=== PATIENT | male | born 1955 | race Caucasian/White ===

== ENCOUNTER → 2020-04-02 15:52 | Outpatient (BNVA) | payer OTHER, SELFPAY | PROVIDERS: PCP Internal Medicine; Referring Provider Internal Medicine; Visit Provider Urology | DX: Z76.89 Persons encountering health services in other specified circumstances (principal) ==

== ENCOUNTER → 2021-04-15 13:07 | Outpatient (BNVA) | payer OTHER, SELFPAY | PROVIDERS: PCP Internal Medicine; Visit Provider Urology | DX: N40.1 Benign prostatic hyperplasia with lower urinary tract symptoms (principal); N32.81 Overactive bladder; N52.01 Erectile dysfunction due to arterial insufficiency; N13.8 Other obstructive and reflux uropathy; R39.12 Poor urinary stream | CPT/HCPCS: 51798; 99212 ==

== ENCOUNTER → 2021-06-10 08:14 | Outpatient (BNVA) | payer OTHER, SELFPAY | PROVIDERS: PCP Internal Medicine; Visit Provider Urology ==

== ENCOUNTER → 2021-07-22 08:48 | Outpatient (BNVA) | payer OTHER, SELFPAY | PROVIDERS: PCP Internal Medicine; Visit Provider Urology | DX: N40.1 Benign prostatic hyperplasia with lower urinary tract symptoms (principal); N13.8 Other obstructive and reflux uropathy; R39.15 Urgency of urination; R35.1 Nocturia; N32.81 Overactive bladder; N52.9 Male erectile dysfunction, unspecified; Z79.899 Other long term (current) drug therapy | CPT/HCPCS: 52000; 99212 ==

== ENCOUNTER → 2021-09-24 10:42 | Outpatient (BNVA) | payer OTHER, SELFPAY | PROVIDERS: PCP Internal Medicine; Visit Provider Urology | DX: Z13.89 Encounter for screening for other disorder (principal) ==

== ENCOUNTER → 2022-03-26 13:46 | Outpatient (BNVA) | payer MEDICARE, OTHER, SELFPAY | PROVIDERS: PCP Internal Medicine; Visit Provider Urology | DX: N40.1 Benign prostatic hyperplasia with lower urinary tract symptoms (principal); N13.8 Other obstructive and reflux uropathy; N32.81 Overactive bladder; R39.12 Poor urinary stream; N52.01 Erectile dysfunction due to arterial insufficiency; Z79.899 Other long term (current) drug therapy | CPT/HCPCS: 51798; 99212 ==

== ENCOUNTER 2023-06-24 11:31 | Outpatient (AMB) | payer MEDICARE, OTHER, SELFPAY ==
--- NOTE | 2023-06-24 11:33 | HO.NEPHOV ---
HPI HPI Comments History of Present Illness Details I would the pleasure of seeing Heriberto in follow-up of his very mild CKD and longstanding hypertension. He had been abstaining from alcohol since his last hospital admission, which was quite a few years ago. He has history of gout and had taken allopurinol in the past which had caused him itching and it was discontinued. He is on probenecid and take colchicine as needed. His blood pressure has been at goal. He claims to have a stable weight. He does not have any chest pain, shortness of breath, paroxysmal nocturnal dyspnea, orthopnea, pedal edema, orthostasis or urinary symptoms. He is good with his diet and compliant with medications. [facility] Medical History (Updated 06/24/23 @ 15:02 by Eduardo Gilbert MD) Hypertension CKD (chronic kidney disease) stage 1, GFR 90 ml/min or greater Surgical History History of appendectomy History of hip replacement Social History Alcohol intake: former Patient Tobacco Use Status: Never used Tobacco Vital Signs 06/24/23 11:35 Height 6 ft Weight 252 lb BMI 34.2 BP 120/70 Blood Pressure Location Lt brachial Position Sitting Pulse 74 Pulse Source Pulse Oximeter Pulse Oximetry (%) 94 Oxygen Delivery Method Room Air Physical Exam Vital Signs: Last Vital Signs Pulse 74 06/24/23 11:35 BP 120/70 06/24/23 11:35 Pulse Ox 94 06/24/23 11:35 Oxygen Delivery Method Room Air 06/24/23 11:35 BMI result Body Mass Index 34.2 Const General: comfortable and no acute distress Orientation/consciousness: patient oriented x3 HEENT Head: Yes normocephalic Mouth: Normal oral and palatal mucosa present Eyes EOM: EOMs intact bilaterally Neck Neck: Yes supple Resp Auscultation: clear to auscultation bilaterally Cardio Jugular venous distension: no JVD Rate: regular rate GI Palpation (GI): Soft to palpation Auscultation: normal bowel sounds General: Yes no CVA tenderness Back/Spine/Pelvis Back: no CVA tenderness Skin General skin exam: no rashes or lesions noted Neuro General: patient oriented x3 and moves all extremities Extrem General: Yes no pedal edema Assessment & Plan Assessment & Plan (1) CKD (chronic kidney disease) stage 1, GFR 90 ml/min or greater: Code(s): N18.1 - Chronic kidney disease, stage 1 (2) Hypertension: Code(s): I10 - Essential (primary) hypertension Plan Heriberto had PARISA in the past secondary to ATN from pancreatitis. He did not need any renal replacement at that time. His renal function improved to baseline and has been stable. He has prostatic symptoms and is closely followed up by urologist. He has not on any ROSALVA inhibitor, ARB or nonsteroidal anti-inflammatories. He will benefit from some more weight loss. His blood pressure is at goal. He maintains good hydration. He has history of gout and it is under good control with the probenecid. He did not tolerate allopurinol. I did not make any medication changes today. All his questions answered. Follow-up appointment given in the ER. Orders: Orders Blood Urea Nitrogen Today N18.1 - Chronic kidney disease, stage 1 Creatinine Today N18.1 - Chronic kidney disease, stage 1 Calcium Today N18.1 - Chronic kidney disease, stage 1 Protein Creatinine Ratio, Ur Today N18.1 - Chronic kidney disease, stage 1 Electrolytes Today N18.1 - Chronic kidney disease, stage 1 Coding Level of Care Code Est Pt Level 3 (14851) Diagnoses CKD (chronic kidney disease) stage 1, GFR 90 ml/min or greater N18.1 Hypertension I10 Results Reviewed Nephrology Results: No Data to Display
[2023-06-24 11:35] VITALS: BP 120/70; PULSE 74; O2SAT 94; BMI 34.2
== END 2023-06-24 12:18 | disposition home or self-care (01) ==
PROVIDERS: PCP Internal Medicine; Visit Provider Internal Medicine Nephrology
DX: I12.9 Hypertensive chronic kidney disease with stage 1 through stage 4 chronic kidney disease, or unspecified chronic kidney disease (principal); N18.1 Chronic kidney disease, stage 1
CPT/HCPCS: 99213

== ENCOUNTER → 2023-06-24 11:31 | Outpatient (BNVA) | payer MEDICARE, OTHER, SELFPAY | PROVIDERS: PCP Internal Medicine; Visit Provider Internal Medicine Nephrology | DX: I12.9 Hypertensive chronic kidney disease with stage 1 through stage 4 chronic kidney disease, or unspecified chronic kidney disease (principal); N18.1 Chronic kidney disease, stage 1 | CPT/HCPCS: 99212 ==

== ENCOUNTER 2023-07-20 11:13 | Outpatient (AMB) | payer MEDICARE, OTHER, SELFPAY ==
--- NOTE | 2023-07-20 11:25 | A.OFFVIS_ITS ---
Intake Intake Visit Reasons: 1Y PSA(set)vm to confirm Intake Note: Patient presents today for a follow-up on PSA Meds- Sildenafil, Terazosin, Tolterodine ER Allergies to Antibiotic- No Known Allergies Blood Thinner- None Post Void Residual: 51ml Mop Man Required: No Accompanied by: Self / Same As Patient Allergies guaifenesin [From MUCINEX] Allergy (Intermediate, Verified 07/20/23 11:27) RAPID HEART hydromorphone [From DILAUDID] Adverse Reaction (Intermediate, Verified 07/20/23 11:27) HEADACHES HPI HPI Comments History of Present Illness Details Carlos is a pleasant male. He is a patient of Dr. Chen. He seen for the following urologic conditions - erectile dysfunction - BPH - urinary urgency and frequency Yearly follow-up for lower urinary tract symptoms and erectile dysfunction Refill provided for tolterodine and terazosin Continued reasonable response - effective for control Continues with 100 mg sildenafil as needed for erections States coffee only 1 per day Current PVR 50 cc, prior PVR 65 Lower Urinary Tract Symptoms: Current visit is for further evaluation of, lower urinary tract symptoms, predominate imitative symptoms - urge 7-8 times per day. 2 times at night - stream ok - does empty Current treatment includes medication terazosin 5 mg, tolterodine 4 mg - prior medications include tamsulosin, oxybutynin, Prostate Symptom Score 3/20 , Moderate (9-19), Bother 3. Symptoms include 3/20 , incomplete emptying, urgency, weak stream, nocturia (>2), and are progressing. Results from testing include renal/bladder us Yes date 08/13/2019 PVR 12 prostate size 22 Prior Prostate Score mild Prostate volume 30-50gm. Associated conditions CAD No CVA No diabetes No elevated PSA No erectile dysfunction No hematuria No renal insufficiency No urge incontinence No urinary retention No urinary tract infection No psychiatric diagnosis No Erectile dysfunction: He presents today for for continued evaluation and management of erectile dysfunction Declining effective sildenafil 100 mg. Increase to 150mg Symptoms have been present for/since Ongoing. Current treatment includes none. Prior therapies include oral medications. At this time he experiences erections are partial and adequate for vaginal penetration, that undergo rapid detumesence after penetration, RAHEEM 8-11 Moderate ED. Currently they are in a stable relationship. Associated problems hypertension No diabetes No dyslipidemia No depression No stress No decreased libido No pelvic surgery No Overall he is is not satisfied with the current management. Therapeutic plan includes increasing dose of oral medication PFSH Medical History Hypertension CKD (chronic kidney disease) stage 1, GFR 90 ml/min or greater Surgical History History of appendectomy History of hip replacement Social History Alcohol intake: former Patient Tobacco Use Status: Never used Tobacco Review of Systems Const Denies chills and Denies fever(s) Card Reports no additional complaints and Denies syncope Resp Denies cough GI Denies abdominal pain and Denies heartburn Reports as per HPI and Denies change in libido Neuro Denies syncope Psych Denies change in libido Endo Denies change in libido Physical Exam Const General: cooperative, healthy appearing, comfortable and no acute distress Orientation/consciousness: patient oriented x3 HEENT Face and sinus: Yes normal facial exam Mouth: moist mucous membranes Neck Neck: Yes normal visual inspection, Yes full ROM and Yes trachea midline Chest Chest palpation & inspection: normal inspection of the chest Resp Effort & Inspection: normal respiratory effort, able to speak in complete sentences and no respiratory distress GI Inspection: Yes normal to inspection Back/Spine/Pelvis Cervical Spine: normal cervical lordosis Thoracic/Lumbar Spine: thoracic and lumbar spine normal to inspection Skin General skin exam: no rashes or lesions noted Neuro General: patient oriented x3, gait normal, tone normal and moves all extremities Extrem General: Yes normal to inspection and Yes capillary refill normal Office Procedures Post Void Residual Post Residual Void Post Void Residual (PVR): 51 [id number] Void Residual by ultrasound Assessment & Plan Assessment & Plan (1) Overactive bladder: Code(s): N32.81 - Overactive bladder (2) Erectile dysfunction due to arterial insufficiency: Code(s): N52.01 - Erectile dysfunction due to arterial insufficiency (3) Nocturia associated with benign prostatic hyperplasia: Code(s): N40.1 - Benign prostatic hyperplasia with lower urinary tract symptoms; R35.1 - Nocturia (4) Weak urinary stream: Code(s): R39.12 - Poor urinary stream Plan Twelve month follow-up Orders: Orders AMB Post Void Residual by ultrasound Today R33.9 - Retention of urine, unspec ified Medications: Refilled tolterodine ER 4 mg PO DAILY 90 days 90 caps 3RF N32.81 - Overactive bladder, N40.0 - Benign prostatic hyperplasia without lower urinary tract symptoms sildenafil administer 60 minutes before intended activity 100 mg PO DAILY 30 days PRN 30 tabs 1RF sexual activity N52.01 - Erectile dysfunction due to arterial insufficiency, N52.9 - Male erectile dysfunction, unspecified terazosin 5 mg PO BEDTIME 90 days 90 caps 3RF N13.8 - Other obstructive and reflux uropathy, N40.1 - Benign prostatic hyperplasia with lower urinary tract symptoms, R35.0 - Frequency of micturition Patient Instructions: Imaging studies, laboratory and physical exam results were discussed and reviewed in detail. No major barriers to patient understanding were identified. An opportunity to ask questions regarding the treatment plan was provided. All questions were answered. The patient expressed understanding and agreement with the above treatment plan. The patient is aware they should contact our office by phone for worsening of their current condition or the appearance of new urologic symptoms. Compliance is encouraged with any medications and followup testing that is ordered. It is a privilege to participate in the urologic care of your patient. If you have any questions or concerns regarding treatment for the above conditions, or other urologic issues, please do not hesitate to contact me. The office telephone contact is [phone]. This note is constructed using voice recognition software. While every effort has been made to ensure accuracy histology technologist errors may have been included. Yours sincerely, Dr Demond Weiss MD, [facility] - Urology Providers of Expert, Compassionate Care for the Genitourinary System Coding Level of Care Code Est Pt Level 4 (46180) Diagnoses Overactive bladder N32.81 Erectile dysfunction due to arterial insufficiency N52.01 Nocturia associated with benign prostatic hyperplasia N40.1; R35.1 Weak urinary stream R39.12 CPT Codes Post Residual Void - PVR CPT Code: 26205-[id number] Void Residual by ultrasound ([id number])
== END 2023-07-20 11:46 | disposition home or self-care (01) ==
PROVIDERS: PCP Internal Medicine; Visit Provider Urology
DX: N32.81 Overactive bladder (principal); N52.01 Erectile dysfunction due to arterial insufficiency; N40.1 Benign prostatic hyperplasia with lower urinary tract symptoms; R35.1 Nocturia; R39.12 Poor urinary stream
CPT/HCPCS: 99213

== ENCOUNTER → 2023-07-20 11:13 | Outpatient (BNVA) | payer MEDICARE, OTHER, SELFPAY | PROVIDERS: PCP Internal Medicine; Visit Provider Urology | DX: N52.01 Erectile dysfunction due to arterial insufficiency (principal); N32.81 Overactive bladder; N40.1 Benign prostatic hyperplasia with lower urinary tract symptoms; R35.1 Nocturia; R39.12 Poor urinary stream | CPT/HCPCS: 51798; 99212 ==

== ENCOUNTER 2024-06-22 09:26 | Outpatient (AMB) | payer MEDICARE, OTHER, SELFPAY ==
--- NOTE | 2024-06-22 09:34 | HO.NEPHOV ---
Vital Signs 06/22/24 09:37 Height 6 ft Weight 253 lb BMI 34.3 BP 118/60 Blood Pressure Location Lt brachial Position Sitting Pulse 82 Pulse Source Pulse Oximeter Pulse Oximetry (%) 97 Oxygen Delivery Method Room Air Intake Visit Reasons: 1 yr follow up-[facility] Diagnostic Sales Specialist Required: No Accompanied by: Self / Same As Patient Allergies guaifenesin [From MUCINEX] Allergy (Intermediate, Verified 06/22/24 09:36) RAPID HEART hydromorphone [From DILAUDID] Adverse Reaction (Intermediate, Verified 06/22/24 09:36) HEADACHES HPI Comments Details: Heriberto was seen in follow-up of his very mild CKD and longstanding hypertension. He recently had pneumonia . He had been abstaining from alcohol since his last hospital admission, which was quite a few years ago. He has history of gout and had taken allopurinol in the past which had caused him itching and it was discontinued. He is on probenecid and take colchicine as needed. His blood pressure has been at goal. He claims to have a stable weight. He does not have any chest pain, shortness of breath, paroxysmal nocturnal dyspnea, orthopnea, pedal edema, orthostasis or urinary symptoms. He is good with his diet and compliant with medications [facility] Medical History Hypertension CKD (chronic kidney disease) stage 1, GFR 90 ml/min or greater Surgical History History of appendectomy History of hip replacement Social History Alcohol intake: former Patient Tobacco Use Status: Never used Tobacco Review of Systems Const All systems reviewed & are unremarkable except as noted in HPI and below Physical Exam Vital Signs: Last Vital Signs Pulse 82 06/22/24 09:37 BP 118/60 06/22/24 09:37 Pulse Ox 97 06/22/24 09:37 Oxygen Delivery Method Room Air 06/22/24 09:37 BMI result Body Mass Index 34.3 Const General: comfortable and no acute distress Orientation/consciousness: patient oriented x3 HEENT Head: Yes normocephalic Mouth: Normal oral and palatal mucosa present Eyes EOM: EOMs intact bilaterally Neck Neck: Yes supple Resp Auscultation: clear to auscultation bilaterally Cardio Jugular venous distension: no JVD Rate: regular rate GI Palpation (GI): Soft to palpation Auscultation: normal bowel sounds General: Yes no CVA tenderness Back/Spine/Pelvis Back: no CVA tenderness Skin General skin exam: no rashes or lesions noted Neuro General: patient oriented x3 and moves all extremities Extrem General: Yes no pedal edema Results Reviewed Nephrology Results: No Data to Display Assessment & Plan Assessment & Plan (1) Hypertension: Code(s): I10 - Essential (primary) hypertension Category: Medical Qualifiers: Hypertension type: primary hypertension Qualified Code(s): I10 - Essential (primary) hypertension (2) CKD (chronic kidney disease) stage 1, GFR 90 ml/min or greater: Code(s): N18.1 - Chronic kidney disease, stage 1 Category: Medical Plan Heriberto had H/O PARISA in the past secondary to ATN from pancreatitis. He did not need any renal replacement at that time. His renal function improved to baseline and has been stable. He has prostatic symptoms and is closely followed up by urologist. He has not on any ROSALVA inhibitor, ARB or nonsteroidal anti-inflammatories. He will benefit from some more weight loss. His blood pressure is at goal. He maintains good hydration. He has history of gout and it is under good control with the probenecid. He did not tolerate allopurinol. I did not make any medication changes today. All his questions answered Orders: Orders Protein Creatinine Ratio, Ur 1 Year I10 - Essential (primary) hypertension, N18.1 - Chronic kidney disease, stage 1 Blood Urea Nitrogen 1 Year I10 - Essential (primary) hypertension, N18.1 - Chronic kidney disease, stage 1 Creatinine 1 Year I10 - Essential (primary) hypertension, N18.1 - Chronic kidney disease, stage 1 Electrolytes 1 Year I10 - Essential (primary) hypertension, N18.1 - Chronic kidney disease, stage 1 Coding Level of Care Code Est Pt Level 4 (33113) Diagnoses Primary hypertension I10 Hypertension type: primary hypertension CKD (chronic kidney disease) stage 1, GFR 90 ml/min or greater N18.1
[2024-06-22 09:37] VITALS: BP 118/60; PULSE 82; O2SAT 97; BMI 34.3
--- OUTSIDE RECORDS SUMMARY | 2024-06-22 09:55 | XMS_ITS | Clinical Summary ---
Author Organization [facility] Address [address] [place] [address] Phone Care Team Providers Care Plaster Mold Maker Name Role Phone No, Pcp Primary Care Provider [phone] Allergies Active Allergy Reactions Criticality Noted Date Comments Hydromorphone Other (see comments) 06/24/2021 Pseudoephedrine-Guaifenesin Other (see comments) 06/24/2021 Medications Cholecalciferol 10 MCG (400 UNIT) capsule Take 1 capsule by mouth 1 (one) time each day Active colchicine 0.6 MG tablet Take 1 tablet by mouth Active cyanocobalamin 500 MCG tablet Take 1 tablet by mouth 1 (one) time each day Active metoprolol succinate XL (TOPROL-XL) 200 MG 24 hr tablet Take 1 tablet by mouth 1 (one) time each day Active terazosin (HYTRIN) 5 MG capsule Take 1 capsule by mouth 1 (one) time each day 06/10/2021 Active tolterodine LA (DETROL LA) 4 MG 24 hr capsule Take 4 mg by mouth 1 (one) time each day Do not crush, chew, or split. Active allopurinol (ZYLOPRIM) 100 MG tablet Take 100 mg by mouth 1 (one) time each day Active Active Problems Problem Noted Date Diagnosed Date Acute nontraumatic kidney injury 06/24/2021 Anemia 06/24/2021 Chronic kidney disease stage 3 06/24/2021 Hypertension 06/24/2021 History of pancreatitis 07/05/2017 Essential hypertension 11/11/2009 Resolved Problems Problem Noted Date Diagnosed Date Resolved Date Gout 06/24/2021 06/24/2021 Pancreatitis 06/24/2021 06/24/2021 Rosacea 06/24/2021 06/24/2021 Benign prostatic hyperplasia with outflow obstruction 06/28/2007 06/24/2021 Obesity 06/28/2007 06/24/2021 Immunizations Name Administration Dates Next Due DT 06/29/2000 Influenza Whole 03/30/2019,01/29/2016 Moderna SARS-COV-2 08/30/2020,07/31/2020 Pneumococcal Polysaccharide 07/06/2017 Tdap 02/04/2014,08/11/2010 Family History Medical History Relation Comments Diabetes Mother type 2 Hypertension Mother Relation Status Comments Mother Social History Tobacco Use Types Packs/Day Years Used Date Smoking Tobacco: Never Smokeless Tobacco: Never Tobacco Cessation:Counseling Given: Not Answered Sex and Gender Information Value Date Recorded Sex Assigned at Not on file Legal Sex Male 4:51 PM EST Gender Identity Not on file Sexual Orientation Not on file Last Filed Vital Signs Vital Sign Reading Time Taken Comments Blood Pressure 128/70 06/30/2022 2:20 PM EST Pulse 78 06/30/2022 2:20 PM EST Temperature - - Respiratory Rate - - Oxygen Saturation 99% 06/24/2021 1:21 PM EST Inhaled Oxygen Concentration - - Weight 117 kg (257 lb 3.2 oz) 06/30/2022 2:20 PM EST Height 182.9 cm (6') 06/18/2020 12:00 PM EST Body Mass Index 34.88 06/18/2020 12:00 PM EST Plan of Treatment Health Maintenance Due Date Last Done Comments Colorectal Cancer Screening: Annual FOBT 2005 Colorectal Cancer Screening: Colonoscopy 2005 Colorectal Cancer Screening: Sigmoidoscopy 2005 Pneumococcal Vaccine: 65+ Years (2 of 2 - PCV) 07/06/2018 07/06/2017 Influenza Vaccine (#1) 2024 9, 01/29/2016 Hepatitis B Vaccine Aged Out No longe r eligible based on patient's age to complete this topic Insurance MEDICARE [facility] [employer]ICARE [employer] Care Teams Plaster Mold Maker Relationship Specialty Start Date End Date No, Pcp PCP - General 06/30/22
== END 2024-06-22 09:57 | disposition home or self-care (01) ==
PROVIDERS: PCP Physician Assistant Medical; Visit Provider Internal Medicine Nephrology
DX: I12.9 Hypertensive chronic kidney disease with stage 1 through stage 4 chronic kidney disease, or unspecified chronic kidney disease (principal); N18.1 Chronic kidney disease, stage 1
CPT/HCPCS: 99214

== ENCOUNTER → 2024-06-22 09:26 | Outpatient (BNVA) | payer MEDICARE, OTHER, SELFPAY | PROVIDERS: PCP Physician Assistant Medical; Visit Provider Internal Medicine Nephrology | DX: I12.9 Hypertensive chronic kidney disease with stage 1 through stage 4 chronic kidney disease, or unspecified chronic kidney disease (principal); N18.1 Chronic kidney disease, stage 1 | CPT/HCPCS: 99212 ==

== ENCOUNTER 2024-07-19 09:40 | Outpatient (AMB) | payer MEDICARE, OTHER, SELFPAY ==
--- NOTE | 2024-07-19 09:49 | A.OFFVIS_ITS ---
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 He is a patient of Dr. Chen. He seen for the following urologic conditions - erectile dysfunction - BPH - urinary urgency and frequency Yearly follow-up for lower urinary tract symptoms and erectile dysfunction Refill provided for tolterodine and terazosin Continued reasonable response - effective for control Continues with 100 mg sildenafil as needed for erections States coffee only 1 per day Current PVR 50 cc, prior PVR 65 Lower Urinary Tract Symptoms: Current visit is for further evaluation of, lower urinary tract symptoms, predominate imitative symptoms - urge 7-8 times per day. 2 times at night - stream ok - does empty Current treatment includes medication terazosin 5 mg, tolterodine 4 mg - prior medications include tamsulosin, oxybutynin, Prostate Symptom Score 3/20 , Moderate (9-19), Bother 3. Symptoms include 3/20 , incomplete emptying, urgency, weak stream, nocturia (>2), and are progressing. Results from testing include renal/bladder us Yes date 08/13/2019 PVR 12 prostate size 22 Prior Prostate Score mild Prostate volume 30-50gm. Associated conditions CAD No CVA No diabetes No elevated PSA No erectile dysfunction No hematuria No renal insufficiency No urge incontinence No urinary retention No urinary tract infection No psychiatric diagnosis No Erectile dysfunction: He presents today for for continued evaluation and management of erectile dysfunction Declining effective sildenafil 100 mg. Increase to 150mg Symptoms have been present for/since Ongoing. Current treatment includes none. Prior therapies include oral medications. At this time he experiences erections are partial and adequate for vaginal penetration, that undergo rapid detumesence after penetration, RAHEEM 8-11 Moderate ED. Currently they are in a stable relationship. Associated problems hypertension No diabetes No dyslipidemia No depression No stress No decreased libido No pelvic surgery No Overall he is is not satisfied with the current management. Therapeutic plan includes increasing dose of oral medication PFSH Medical History Hypertension CKD (chronic kidney disease) stage 1, GFR 90 ml/min or greater Surgical History History of appendectomy History of hip replacement Social History Alcohol intake: former Patient Tobacco Use Status: Never used Tobacco Review of Systems Const Denies chills and Denies fever(s) Card Reports no additional complaints and Denies syncope Resp Denies cough GI Denies abdominal pain and Denies heartburn Reports as per HPI and Denies change in libido Neuro Denies syncope Psych Denies change in libido Endo Denies change in libido Physical Exam Const General: cooperative, healthy appearing, comfortable and no acute distress Orientation/consciousness: patient oriented x3 HEENT Face and sinus: Yes normal facial exam Mouth: moist mucous membranes Neck Neck: Yes normal visual inspection, Yes full ROM and Yes trachea midline Chest Chest palpation & inspection: normal inspection of the chest Resp Effort & Inspection: normal respiratory effort, able to speak in complete sentences and no respiratory distress GI Inspection: Yes normal to inspection Back/Spine/Pelvis Cervical Spine: normal cervical lordosis Thoracic/Lumbar Spine: thoracic and lumbar spine normal to inspection Skin General skin exam: no rashes or lesions noted Neuro General: patient oriented x3, gait normal, tone normal and moves all extremities Extrem General: Yes normal to inspection and Yes capillary refill normal Office Procedures Post Void Residual Post Residual Void Post Void Residual (PVR): 36 [id number] Void Residual by ultrasound Results AMB Urinalysis, Automated UA Leukoctes 0 Viviana/uL Last Edit by NIGEL Dunham on 07/19/24 09:57 UA Nitrite Negative Last Edit by NIGEL Dunham on 07/19/24 09:57 UA Urobilinogen 3.5 mg/dL Last Edit by NIGEL Dunham on 07/19/24 09:5 7 UA Protein 15 mg/dL Last Edit by NIGEL Dunham on 07/19/24 09:57 UA pH 5.5 Last Edit by NIGEL Dunham on 07/19/24 09:57 UA Blood 0 Andrey/uL Last Edit by NIGEL Dunham on 07/19/24 09:57 UA Specific Eland 1.020 Last Edit by NIGEL Dunham on 07/19/24 09: 57 UA Ketone Negative Last Edit by NIGEL Dunham on 07/19/24 09:57 UA Bilirubin 0 mg/dL Last Edit by NIGEL Dunham on 07/19/24 09:57 UA Glucose 0 mg/dL Last Edit by NIGEL Dunham on 07/19/24 09:57 Results Reviewed Results Reviewed: Laboratory Last Values Urine pH (Auto) 5.5 07/19/24 09:57 Specific Eland (Auto) 1.020 07/19/24 09:57 Urine Protein (Auto) 15 mg/dL 07/19/24 09:57 Glucose (UA)(Auto) 0 mg/dL 07/19/24 09:57 Urine Ketones (Auto) Negative 07/19/24 09:57 Urine Blood (Auto) 0 Andrey/uL 07/19/24 09:57 Urine Nitrite (Auto) Negative 07/19/24 09:57 Urine Bilirubin (Auto) 0 mg/dL 07/19/24 09:57 Urine Urobilinogen (Auto) 3.5 mg/dL 07/19/24 09:57 Leukocyte Esterase (Auto) 0 Viviana/uL 07/19/24 09:57 Assessment & Plan Assessment & Plan (1) BPH w urinary obs/LUTS: Code(s): N40.1 - Benign prostatic hyperplasia with lower urinary tract symptoms; N13.8 - Other obstructive and reflux uropathy Category: Medical (2) Weak urinary stream: Code(s): R39.12 - Poor urinary stream Category: Medical (3) Erectile dysfunction due to arterial insufficiency: Code(s): N52.01 - Erectile dysfunction due to arterial insufficiency Category: Medical (4) Overactive bladder: Code(s): N32.81 - Overactive bladder Category: Medical Plan Medication refill Twelve month follow-up Orders: Orders AMB Urinalysis Automated Today Z13.9 - Encounter for screening, unspecified Medications: New sildenafil administer 60 minutes before intended activity 100 mg PO ONCE PRN 30 tabs 1RF sexual activity 30 days N52.01 - Erectile dysfunction due to arterial insufficiency Refilled terazosin 5 mg PO BEDTIME 90 caps 3RF 90 days N13.8 - Other obstructive and reflux uropathy, N40.1 - Benign prostatic hyperplasia with lower urinary tract symptoms, R35.0 - Frequency of micturition tolterodine ER 4 mg PO DAILY 90 caps 3RF 90 days N32.81 - Overactive bladder, N40.0 - Benign prostatic hyperplasia without lower urinary tract symptoms Patient Instructions: This note is constructed using voice recognition software. While every effort has been made to ensure accuracy cancellation clerk errors may have been included. Imaging studies, laboratory and physical exam results were discussed and re viewed in detail. No major barriers to patient understanding were identified. An opportunity to ask questions regarding the treatment plan was provided. All questions were answered. The patient expressed understanding and agreement with the above treatment plan. The patient is aware they should contact our office by phone for worsening of their current condition or the appearance of new urologic symptoms. Compliance is encouraged with any medications and followup testing that is ordered. It is a privilege to participate in the urologic care of your patient. If you have any questions or concerns regarding treatment for the above conditions, or other urologic issues, please do not hesitate to contact me. The office telephone contact is [phone]. Sincerely, Dr Demond Weiss MD, [facility]ionate Specialist Care for the Genitourinary System Coding Level of Care Code Est Pt Level 4 (05967) Diagnoses BPH w urinary obs/LUTS N40.1; N13.8 Weak urinary stream R39.12 Erectile dysfunction due to arterial insufficiency N52.01 Overactive bladder N32.81 CPT Codes Post Residual Void - PVR CPT Code: 05790-Srit Void Residual by ultrasound ([id number])
--- OUTSIDE RECORDS SUMMARY | 2024-07-19 11:00 | XMS_ITS | Continuity of Care Document ---
Author Organization [facility] Adult Address [address] [place] [address]- Care Team Providers Care Supervisor [employer]ing [employer] Name Role Phone Fela Chun Primary Care Matthew nicholson [id number] Date([facility]24 - 07/01/[address] [address]- Encounter Type: Triage Allergies, Adverse Reactions, Alerts Substance Criticality Severity Reaction Reaction Severity Status Dilaudid Active Mucinex D Racing heart beat Ac tive Immunizations Given and Recorded Vaccine Date Status Refusal Reason influenza virus vaccine, inactivated 04/17/24 Ramesh rded influenza virus vaccine, inactivated 04/13/23 Ramesh rded influenza virus vaccine, inactivated 04/14/22 Ramesh rded influenza virus vaccine, inactivated 02/26/21 Ramesh rded influenza virus vaccine, inactivated 02/13/20 Ramesh rded influenza virus vaccine, inactivated 1 05/25/18 Re corded influenza virus vaccine, inactivated 2 05/28/17 Re corded influenza virus vaccine, inactivated 3 01/23/14 Gi canelo influenza virus vaccine, inactivated 02/01/11 Give n SARS-CoV-2(COVID-19)mRNA-LNP vac([id number]) 02/29/24 Recorded SARS-CoV-2(COVID-19)mRNA-LNP vac([id number]) 04/13/23 Recorded [id number] bivalent booster vax 03/23/22 Recorded SARS-CoV-2 (COVID-19) mRNA-1273 vaccine 10/06/21 R ecorded SARS-CoV-2 (COVID-19) mRNA-1273 vaccine 03/12/21 R ecorded SARS-CoV-2 (COVID-19) mRNA-1273 vaccine 08/30/20 R ecorded SARS-CoV-2 (COVID-19) mRNA-1273 vaccine 07/31/20 R ecorded Influenza Virus Vaccine (oldterm) 03/30/19 Recorde d pneumococcal 23-valent vaccine 07/06/17 Given Fluarix (oldterm) 4 01/29/16 Given tetanus/diphtheria/pertussis, acel(Tdap) 02/04/14 Given tetanus/diphtheria/pertussis, acel(Tdap) 08/11/10 Given Diphth-Tetanus Toxoids Adsorbed(oldterm) 5 06/29/00 Given [facility] 2Location History[facility] 3Admin Note: [facility] 4Admin Note: [facility] 5Admin Note: historial data Medications colchicine 0.6 mg oral capsule See Instructions, 2 capsules PRN, 0 Refills, Maintenance, 07/11/21 10:46:00 AM EST, Partial fill upon patient request if the prescription is for a schedule II opioid drug. Start Date: 07/11/21 Status: Ordered Repeat number: 1 Metoprolol Succinate ER 200 mg oral tablet, extended release 1 tablet, By Mouth, Daily, # 90 tablet, 1 Refills, Maintenance, 03/12/24 7:32:00 AM EDT, [facility], 180.4, cm, 01/24/24 13:21:00 EDT, Height Start Date: 03/12/24 Status: Ordered Quantity: 90.0 Unit: tablet Repeat number: 2 probenecid 500 mg oral tablet 500 mg, 1, tablet, By Mouth, 2 times a day, # 180 tablet, Refills 0, Maintenance, 07/01/23 11:16:00 AM EST, Partial fill upon patient request if the prescription is for a schedule II opioid drug. Start Date: 07/01/23 Status: Ordered Quantity: 180.0 Unit: tablet Repeat number: 1 terazosin 5 mg oral capsule 5 mg, 1, capsule, By Mouth, Daily at bedtime, # 30 capsule, Refills 0, Maintenance, 07/11/21 10:46:00 AM EST, Partial fill upon patient request if the prescription is for a schedule II opioid drug. Start Date: 07/11/21 Status: Ordered Quantity: 30.0 Unit: capsule Repeat number: 1 tolterodine 4 mg oral capsule, extended release 1 capsule = 4 mg, By Mouth, Daily, # 30 capsule, 0 Refills, Maintenance, 09/24/21 1:18:00 PM EDT, [facility], Partial fill upon patient request if the prescription is for a schedule II opioid drug. Start Date: 09/24/21 Status: Ordered Quantity: 30.0 Unit: capsule Repeat number: 1 Vitamin B12 1000 mcg oral tablet 1 tablet = 1,000 mcg, By Mouth, Daily, # 90 tablet, 0 Refills, Maintenance, 11/02/18 9:33:27 AM EDT,Tablet Start Date: 11/02/18 Status: Ordered Quantity: 90.0 Unit: tablet Repeat number: 1 Vitamin D3 1000 intl units oral tablet 1 tablet = 1,000 International_Units, By Mouth, Daily, # 90 tablet, 0 Refills, Maintenance, 199:33:28 AM EDT, Tablet Start Date: 11/02/18 Status: Ordered Quantity: 90.0 Unit: tablet Repeat number: 1 Problem List Condition Confirmation Course Effective Dates Status Health St atus Informant 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 Gout Confirmed Active History of pancreatitis Confirmed 07/05/17 Active Hypertension Confirmed 11/11/09 Active Obesity Confirmed 06/28/07 Active Plantar fasciitis Confirmed Active ROSACEA Confirmed Active Severe obesity (BMI 35.0-39.9) with comorbidity Confirmed Active Social History Social History Type Response Smoking Status Never smoker entered on: 02/06/14 Sex Sex Representation Male (finding) Patient Care team information Care Team Personnel Name: Steve Trevino RN Position: [facility] ED RN W/OE and Tasks Member Role: Primary Care Nurse Name: Kentrell Fitzgerald RN Position: [facility] RN Member Role: Primary Care Nurse Name: Hilda Arredondo NP Position: [facility] Associate Professional Member Role: Primary Care Nurse Name: Eduardo Gilbert MD Position: [facility] Renal MD Member Role: Lifetime Consulting Physician Address: [address] [place] [address] [id number] [place] [address]- [place] [employer]: Name: MariaA Rodriguez RN Position: [facility] RN Member Role: Primary Care Nurse Name: Sheryl Mcnair RN Position: [facility] RN Member Role: Primary Care Nurse Name: Barbara Sy RN Position: [facility] RN Member Role: Primary Care Nurse Name: Lissette Haji RN Position: [facility] RN Member Role: Primary Care Nurse Name: Tiffany Bernard RN Position: [facility] RN Member Role: Primary Care Nurse Name: Saran Marr III, RN Position: [facility] RN Member Role: Primary Care Nurse Name: Rachael Soto RN Position: [facility] ED RN W/OE and Tasks Member Role: Primary Care Nurse Name: Letitia Collazo RN Position: [facility] RN Member Role: Primary Care Nurse Name: Fela Chun Position: [facility] PCO Associate Professional Member Role: PCP Address: [address] [place] [address] [address] [place] [address]- [place] [employer]: Name: Sujey Storey RN Position: [facility] AMB Nurse Member Role: Primary Care Nurse Name: Abby Leggett RN Position: [facility] RN Member Role: Primary Care Nurse Name: Mery Dowd RN Position: [facility] RN Member Role: Primary Care Nurse Name: Laura Bedolla RN Position: [facility] RN Member Role: Primary Care Nurse Name: Alen Delacruz MD Position: [facility] Renal MD Member Role: Lifetime Consulting Physician Address: [address] [place] [address] [address] [facility] [place] [address]- [place] [employer]: Name: Delfino Moyer RN Position: [facility] RN Member Role: Primary Care Nurse Name: Purvi Guevara Position: [facility] RN Member Role: Primary Care Nurse Name: Sonali Merrill RN Position: [facility] SN RN Member Role: Primary Care Nurse Name: Meche Lopez RN Position: [facility] RN Member Role: Primary Care Nurse Name: Valeria Cazares RN Position: [facility] RN Member Role: Primary Care Nurse Name: Ivet Arellano RN Position: [facility] Hospital Welding Machine Operator Member Role: Primary Care Nurse Care Team Related Persons Name: SURYAKELSEY Insurance Providers Guarantor name: KIERA CAMRONDon [employer] Plan Information #: 1 Payer: MEDICARE PART B OUTPT Member Number: NA Policy Number: NA Group Number: NA Health Plan Information #: 2 Payer: FOR LIFE MCR A ONLY Member Number: NA Policy Number: NA Group Number: NA
--- OUTSIDE RECORDS SUMMARY | 2024-07-19 11:00 | XMS_ITS | Continuity of Care Document ---
Author Organization [facility] Address [address] [place] [address]- Care Team Providers Care Fabrication Lead Name Role Phone Bob ONEAL, Fela Murray Primary Care P hysician [id number] Date(s): 06/25/24 - 07/02/[address] [address]- Encounter Diagnosis Memory changes(Discharge Diagnosis) - 06/25/24 Hearing loss(Discharge Diagnosis) - 06/25/24 Attending Physician: Fela Chun Encounter Type: Office Visit Allergies, Adverse Reactions, Alerts Substance Criticality Severity [...] virus vaccine, inactivated 02/01/11 Give n SARS-CoV-2(COVID-19)mRNA-LNP vac([id number]) 02/29/24 Recorded SARS-CoV-2(COVID-19)mRNA-LNP vac([id number]) 04/13/23 Recorded [id number] bivalent booster vax 03/23/22 Recorded SARS-CoV-2 (COVID-19) [...] Condition Confirmation Course Effective Dates Status Health at Informant 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 Gout Confirmed Active History of pancreatitis Confirmed 07/05/17 Active Hypertension Confirmed 11/11/09 Active Obesity Confirmed 06/28/07 Active Plantar fasciitis Confirmed Active ROSACEA Confirmed Active Severe obesity (BMI 35.0-39.9) with comorbidity Confirmed Active Diagnosis Diagnosis Type Effective Dates Health Status inical Service Informant Memory changes Discharge Diagnosis 06/25/24 Hearing loss Discharge Diagnosis 06/25/24 Vital Signs Most recent to oldest [Reference Range]: 1 Height 180.4 cm (06/25/24 3:30 PM) Weight 116.0 kg (06/25/24 3:30 PM) Oxygen Saturation [94-100 %] 98 % (06/25/24 3:30 PM) Pulse Rate [55-90 bpm] 66 bpm (06/25/24 3:30 PM) Body Mass Index [18.5-24.99 kg/m2] 35.64 kg/m2 *>HHI* (06/25/24 3:30 PM) Blood Pressure [90-138/55-84 mm Hg] 136/ 69mm Hg (06/25/24 3:30 PM) Temperature [96.8-100.4 DegF] 97.3 DegF (06/25/24 3:30 PM) Mode of Delivery (Oxygen) Room air (06/25/24 3:30 PM) Blood pressure sites Arm, left (06/25/24 3:30 PM) Temperature Route Temporal (06/25/24 3:30 PM) Weight Obtained Via Standing scale (06/25/24 3:30 PM) Social History Social History Type Response Smoking Status Never smoker entered on: 02/06/14 Sex Sex Representation Male (finding) Note * [employer] [place]: PERFORM Event Display: Patient Education/Instruction Authored Date: [id number] Ambulatory Adult Visit Summary [facility] [place] [id number] Name: KIERA LONDON : 1955?? Visit: 06/25/2024 15:28?? Ambulatory Visit Instructions ?? Your Care Team Primary Care Provider Fela Chun? This Visit Provider Fela Chun Your Diagnosis Memory changes Vitals Signs Temperature: 97.3 DegF Height: 180.4 cm Pulse Rate: 66 bpm Weight: 116 kg Systolic Blood Pressure: 136 mm Hg Body Mass Index:??35.64 kg/m2??Critical Diastolic Blood Pressure: 69 mm Hg Body surface area: 2.41 Oxygen Saturation: 98 % ?? What to do next Future Orders CBC w/ Differential - Routine, Once, 06/25/24 16:01:00 EST, Order for Today, [facility], Blood?? Complete Urinalysis/Reflex Culture (Urinalysis Complete/Reflex Culture) - Routine, Once, 06/25/24 16:01:00 EST, Single or Recurring Future Order, [facility], Urine?? Comprehensive Metabolic Panel - Routine, Once, 06/25/24 16:01:00 EST, Within 3 Days, [facility], Blood?? Heavy Metal Screen - Routine, Once, 06/25/24 16:01:00 EST, Within 3 Days, [facility], Blood?? Lyme PCR, blood - Routine, Once, 06/25/24 16:02:00 EST, Within 3 Days, [facility], Blood?? Thiamine Level - Routine, Once, 06/25/24 16:02:00 EST, Order for Today, [facility], Blood?? Vitamin B12 Level (B12 Vitamin Level) - Routine, Once, 06/25/24 16:02:00 EST, Within 3 Days, [facility], Blood?? Vitamin D 25 Hydroxy Level - Routine, Once, 06/25/24 16:02:00 EST, Order for Today, [facility], Blood?? TSH Rfx on Abnormal to Free T4 - Routine, Once, 06/25/24 16:02:00 EST, Order for Today, [facility], Blood?? Medications The list below reflects the information in our records and provided by you today along with any changes made during this visit. Please continue your medications until treatment is completed or stopped by your provider. If this is different from the information you have or there are other questions,please contact the prescribing provider. What How Much When Instructions Unchanged Cholecalciferol (Vitamin D3 1000 intl units oral tablet) 1 tab(s) Oral Daily Unchanged Colchicine (colchicine 0.6 mg oral capsule) See instructions 2 capsules PRN ?? Unchanged Cyanocobalamin (Vitamin B12 1000 mcg oral tablet) 1 tab(s) Oral Daily Unchanged Metoprolol (Metoprolol Succinate ER 200 mg oral tablet, extended release) 1 tab(s) Oral Daily Unchanged Probenecid (probenecid 500 mg oral tablet) 1 tab(s) Oral Twice a day Unchanged Terazosin (terazosin 5 mg oral capsule) 1 capsule Oral Daily at Bedtime Unchanged Tolterodine (tolterodine 4 mg oral capsule, extended release) 1 capsule Oral Daily Test Performed Below is a partial list of the tests performed during your Visit. You may have had other tests and procedures not included in this list. Please discuss all test results with your provider. B12 Vitamin Level?-- Results Pending -- CBC w/ Differential?-- Results Pending -- Comprehensive Metabolic Panel?-- Results Pending -- Heavy Metal Screen?-- Results Pending -- Lyme PCR, blood?-- Results Pending -- Thiamine Level?-- Results Pending -- TSH Rfx on Abnormal to Free T4?-- Results Pending -- Urinalysis Complete/Reflex Culture?-- Results Pending -- Vitamin D 25 Hydroxy Level?-- Results Pending -- Medications and Immunizations Administered Medications Given During Visit No medications given during this visit.?? Allergies (NKA means No Known Allergies) Dilaudid Mucinex D??(Racing heart beat) Common Emergency Awareness Tips IS IT A STROKE? Act FAST and Check for these signs: FACE Does the face look uneven? ARM Does one arm drift down? SPEECH Does their speech sound strange? TIME Call at any sign of stroke ?? Heart Attack Signs Chest discomfort: Most heart attacks involve discomfort in the center of the chest and lasts more than a few minutes, or goes away and comes back. It can feel like uncomfortable pressure, squeezing, fullness or pain. Discomfort in upper body: Symptoms can include pain or discomfort in one or both arms, back, neck, jaw or stomach. Shortness of breath: With or without discomfort. Other signs: Breaking out in a cold sweat, nausea, or lightheaded. Remember, MINUTES DO MATTER. If you experience any of these heart attack warning signs, call to get immediate medical attention! ?? Smoking can increase your chances of developing chronic health problems and can cause harmful effects to other family members in your house. If you smoke, you are strongly encouraged to quit. Please call [employer] at [phone] or [phone] ([phone]) or log in to [email or web address] for referrals to smoking cessation programs. ?? The National Suicide Prevention Hotline is available 06/12 if you or someone you know needs to find a reason to keep living. By calling 7-544-694-cszt ([phone]) you'll be connected to a skilled, trained counselor at a crisis center in your area. [facility] Portal You can view and manage your care through the patient portal or by using a health care kelly of your choosing. [employer] is a website that allows you to securely view your medical information including your hospital discharge summary, office visit summaries, medications and follow-up visits. You can also request appointments, renew medications, and request access to your medical information using a health care kelly of your choosing, or just ask a question. You can enroll at [email or web address] or register during your next office visit. [facility], in keeping with [facility] guidance, no longer requires face masks for staff, patientsor visitors in most situations. Similiar to time spent indoors at other locations, there is the chance that you were exposed to repiratory viruses during your time with us (such as flu or COVID-19). If you develop symptoms concerning for a viral respiratory infection, please seek testing (and treatment if indicated) from your medical provider or home test kit. ?? Disclaimer: The information provided is of a general nature and is intended to be used in conjunction with the recommendations and advice of your health care practitioner. Every effort has been made to ensure that the information provided is accurate and complete at the time it is provided to you however, as your needs change, or, as new information becomes available, different or additional instructions may be required. ?? If you have questions, please consult with your primary care provider or pharmacist, as appropriate. This information is not intended to serve as substitution for assessment and evaluation by a qualified health care provider. If you do not have a primary care provider, you may find a [facility] provider by calling [facility] Link at [phone]. Patient Care team information Care Team Personnel Name: Steve Trevino RN Position: [facility] ED RN W/OE and Tasks Member Role: Primary Care Nurse Name: Kentrell Fitzgerald RN Position: S RN Member Role: Primary Care Nurse Name: Hilda Arredondo NP Position: [facility] Associate Professional Member Role: Primary Care Nurse Name: Eduardo Gilbert MD Position: [facility] Renal MD Member Role: Lifetime Consulting Physician Address: [address] [place] [address] [id number] [place] [address]- [place] [employer]: Name: Maria A Rodriguez RN Position: [facility] RN Member Role: Primary Care Nurse Name: Sheryl Mcnair RN Position: [facility] RN Member Role: Primary Care Nurse Name: Barbara Sy RN Position: [facility] RN Member Role: Primary Care Nurse Name: Lissette Haji RN Position: [facility] RN Member Role: Primary Care Nurse Name: Tiffany Bernard RN Position: [facility] RN Member Role: Primary Care Nurse Name: Saran Marr III, RN Position: [facility] RN Member Role: Primary Care Nurse Name: Rachael Soto RN Position: [facility] ED RN W/OE and Tasks Member Role: Primary Care Nurse Name: Letitia Collazo RN Position: [facility] RN Member Role: Primary Care Nurse Name: Fela Chun Position: [facility] PCO Associate Professional Member Role: PCP Address: [address] [place] [address] [address] [place] [address]- [place] [employer]: Name: Sujey Storey RN Position: [facility] AMB Nurse Member Role: Primary Care Nurse Name: Abby Leggett RN Position: [facility] RN Member Role: Primary Care Nurse Name: Mery Dowd RN Position: [facility] RN Member Role: Primary Care Nurse Name: Laura Bedolla RN Position: [facility] RN Member Role: Primary Care Nurse Name: Alen Delacruz MD Position: [facility] Renal MD Member Role: [employer] Consulting Physician Address: [address] [place] [address] [address] [facility] [place] [address]- [place] [employer]: Name: Delfino Moyer RN Position: [facility] RN Member Role: Primary Care Nurse Name: Purvi Guevara Position: [facility] RN Member Role: Primary Care Nurse Name: Sonali Merrill RN Position: [facility] SN RN Member Role: Primary Care Nurse Name: Meche Lopez RN Position: [facility] RN Member Role: Primary Care Nurse Name: Valeria Cazares RN Position: [facility] RN Member Role: Primary Care Nurse Name: Ivet Arellano RN Position: [facility] Hospital Medical Office Secretary Member Role: Primary Care Nurse Care Team Related Persons Name: KELSEY LONDON Insurance Providers Guarantor name: KIERA LONDON Pulse Plan Information #: 1 Payer: MEDICARE PART B OUTPT Member Number: [id number] Policy Number: NA Group Number: NA Health Plan Information #: 2 Payer: [employer] MCR A ONLY Member Number: [id number] Policy Number: NA Group Number: NA
--- OUTSIDE RECORDS SUMMARY | 2024-07-19 11:00 | XMS_ITS | Clinical Summary ---
Author Organization [facility] Address [address] [place] [address] Phone Care Team Providers Care Mitochondrial Disorders Counselor Name Role Phone No, Pcp Primary Care Provider [phone] Allergies Active Allergy Reactions Criticality Noted Date [...] age to complete this topic Insurance MEDICARE [facility] MEDICARE [facility] Care Teams Mitochondrial Disorders Counselor Relationship Specialty Start Date End Date No, Pcp PCP - General 06/30/22
== END 2024-07-19 10:15 | disposition home or self-care (01) ==
PROVIDERS: PCP Physician Assistant Medical; Visit Provider Urology
DX: N40.1 Benign prostatic hyperplasia with lower urinary tract symptoms (principal); N13.8 Other obstructive and reflux uropathy; R39.12 Poor urinary stream; N52.01 Erectile dysfunction due to arterial insufficiency; N32.81 Overactive bladder; Z13.9 Encounter for screening, unspecified
CPT/HCPCS: 99214

== ENCOUNTER → 2024-07-19 09:40 | Outpatient (BNVA) | payer MEDICARE, OTHER, SELFPAY | PROVIDERS: PCP Physician Assistant Medical; Visit Provider Urology | DX: N40.1 Benign prostatic hyperplasia with lower urinary tract symptoms (principal); N13.8 Other obstructive and reflux uropathy; N52.9 Male erectile dysfunction, unspecified; N40.0 Benign prostatic hyperplasia without lower urinary tract symptoms; R39.15 Urgency of urination; R39.12 Poor urinary stream; N52.01 Erectile dysfunction due to arterial insufficiency; N32.81 Overactive bladder | CPT/HCPCS: 51798; 81003; 99212 ==